=== PATIENT | male | born 1985 | race Caucasian/White ===

== ENCOUNTER 2024-02-15 03:10 | Emergency (ER) | payer OTHER ==
[2024-02-15 03:57] LABS: HEMATOCRIT 43.2 % (42.0-52.0); HEMOGLOBIN 15.6 g/dL (14.0-18.0); MEAN CORPUSCULAR HEMOGLOBIN 31.6 pg (28.0-32.0); MEAN CORPUSCULAR HGB CONC 36.1 g/dL (32.0-36.0); MEAN CORPUSCULAR VOLUME 87.6 fL (83.0-99.0); MEAN PLATELET VOLUME 10.7 fL (9.4-12.4); PLATELET COUNT,PLT 277 K/uL (150-400); RED BLOOD CELL COUNT 4.93 M/uL (4.52-5.90); WHITE BLOOD CELL COUNT,WBC 11.77 K/uL (3.9-11.3)
[2024-02-15 04:31] LABS: A/G RATIO 1.1 (0.9-1.6); ACETAMINOPHEN <2.0 ug/mL; ALANINE AMINOTRANSFERASE,ALT 55 IU/L (14-63); ALBUMIN 4.2 g/dL (3.4-5.0); ALKALINE PHOSPHATASE 131 U/L (46-116); ASPARTATE AMNIOTRANSFERASE,AST 30 IU/L (15-37); BILIRUBIN TOTAL 0.4 mg/dL (0.2-1.0); BLOOD UREA NITROGEN,BUN 8 mg/dL (7.0-18.0); CALCIUM 9.1 mg/dL (8.5-10.1); CARBON DIOXIDE,CO2 26.9 mmol/L (21.0-32.0); CHLORIDE,CL 104 mmol/L (98-107); CREATININE 1.2 mg/dL (0.8-1.3); EST CRCL DRUG DOSING (CG) 82.65 mL/min; ETHANOL BLOOD MEDICAL 235 mg/dL; GLUCOSE RANDOM 113 mg/dL (74-106); POTASSIUM,K 3.6 mmol/L (3.5-5.1); PROTEIN TOTAL,TP 7.9 g/dL (6.4-8.2); SALICYLATE 3.8 mg/dL (0.0-20.0); SODIUM,NA 142 mmol/L (136-148); T3 FREE 3.52 pg/mL (2.18-3.98); T4 FREE 1.07 ng/dL (0.76-1.46); TSH ULTRASENSITIVE 2.52 uIU/mL (0.36-3.74)
[2024-02-15 04:32] LABS: ESTIMATED GFR 79 mL/min (>60)
[2024-02-15 04:59] LABS: BASOPHILS PERCENT MAN 0 % (0-1); EOSINOPHILS ABSOLUTE MAN 0.24 K/uL (0.00-0.45); EOSINOPHILS PERCENT MAN 2 % (0-6); LYMPHOCYTES ABSOLUTE MAN 5.77 K/uL (1.00-4.80); LYMPHOCYTES PERCENT MAN 49 % (24-44); MONOCYTES ABSOLUTE MAN 0.71 K/uL (0.00-0.80); MONOCYTES PERCENT MAN 6 % (0-8); SEG NEUTROPHILS ABSOLUTE MAN 5.06 K/uL (1.80-7.70); SEG NEUTROPHILS PERCENT MAN 43 % (41-71)
== END 2024-02-15 06:57 | disposition home or self-care (01) ==
LOC: MW.ED 03:10
DX: F10.120 Alcohol abuse with intoxication, uncomplicated (principal); R45.850 Homicidal ideations; Z86.59 Personal history of other mental and behavioral disorders; Z88.8 Allergy status to other drugs, medicaments and biological substances; Z79.899 Other long term (current) drug therapy; Y90.8 Blood alcohol level of 240 mg/100 ml or more
CPT/HCPCS: 36415; 80053; 80143; 80179; 80307; 83735; 84439; 84443; 84481; 85025; 93005; 99285